=== PATIENT | male | born 1980 ===

== ENCOUNTER 2017-12-01 18:27 | Emergency (ER) | payer OTHER ==
[2017-12-01 18:46] VITALS: BP 107/66; PULSE 84; RESP 16; TEMP 97.9; O2SAT 99
--- NOTE | 2017-12-01 19:05 | ED PDOC ---
History of Present Illness History of Present Illness: Jelani Parra is a 37 year old male with no past medical history who is presenting to the ED for evaluation of nasal congestion, sore throat, and minimal cough onset over a week ago. Patient states that symptoms are worsening and reports tactile fevers. He denies any allergies and states that he has not taken any medications today. PMD: none provided HPI: Influenza Time Seen by Provider: 12/01/17 18:55 Chief Complaint: Cough, Cold, Congestion Chief Complaint (Provider): Cough, Cold, Congestion History Per: Patient Exam Limitations: no limitations Onset/Duration Of Symptoms: Days Symptoms include: fever, sore throat, cough, nasal congestion Past Medical History Reviewed: Historical Data, Nursing Documentation, Vital Signs Vital Signs: Last Vital Signs Temp 97.9 F 12/01/17 18:43 Pulse 84 12/01/17 18:43 Resp 16 12/01/17 18:43 BP 107/66 12/01/17 18:43 Pulse Ox 99 12/01/17 18:43 - Medical History PMH: No Chronic Diseases - Surgical History Surgical History: No Surg Hx - Family History Family History: States: Unknown Family Hx - Immunization History Hx Tetanus Toxoid Vaccination: No Hx Influenza Vaccination: No Hx Pneumococcal Vaccination: No - Home Medications Home Medications: Ambulatory Orders Medication Instructions Recorded Cyclobenzaprine [Cyclobenzaprine 10 mg PO TID PRN #15 tab 07/09/17 HCl] Naproxen [Naprosyn] 500 mg PO BID PRN #15 tablet 07/09/17 Ibuprofen [Motrin] 600 mg PO Q8 PRN #21 tab 12/01/17 Pseudoephedrine [Sudafed Tab] 60 mg PO Q6 PRN #24 tab 12/01/17 - Allergies Allergies/Adverse Reactions: Allergies Allergy/AdvReac Type Severity Reaction Status Date / Time No Known Allergies Allergy Verified 12/01/17 18:43 Review of Systems ROS Statement: Except As Marked, All Systems Reviewed And Found Negative Constitutional: Positive for: Fever ENT: Positive for: Nose Congestion, Throat Pain Respiratory: Positive for: Cough Physical Exam - Reviewed Nursing Documentation Reviewed: Yes Vital Signs Reviewed: Yes - Physical Exam Appears: Positive for: Well, Non-toxic, No Acute Distress Head Exam: Positive for: ATRAUMATIC, NORMAL INSPECTION, NORMOCEPHALIC ENT: Positive for: Nasal Congestion, Pharyngeal Erythema (minimal) Cardiovascular/Chest: Positive for: Regular Rate, Rhythm. Negative for: Murmur Respiratory: Positive for: Normal Breath Sounds, Other (lungs clear to auscultation). Negative for: Respiratory Distress Neurologic/Psych: Positive for: Alert, Oriented. Negative for: Motor/Sensory Deficits Medical Decision Making Medical Decision Making: Time: 18:56 Plan: --Sudafed Tab 60 mg PO --Rapid Strep Scribe Attestation: Documented by Rajwinder Humphrey, acting as a scribe for Joesph Li PA-C. Provider Scribe Attestation: All medical record entries made by the Scribe were at my direction and personally dictated by me. I have reviewed the chart and agree that the record accurately reflects my personal performance of the history, physical exam, medical decision making, and the department course for this patient. I have also personally directed, reviewed, and agree with the discharge instructions and disposition. - ECG O2 Sat by Pulse Oximetry: 99 - Progress ED Course And Treament: RAPID STREP NEG PSEUDOEPHEDRINE 60 MG X 1 DOSE Disposition - Clinical Impression Clinical Impression: Nasal congestion - Patient ED Disposition Is Patient to be Admitted: No - Disposition Referrals: [facility] [Outside] Disposition: Routine/Home Disposition Time: 19:39 Condition: FAIR Prescriptions: Ibuprofen [Motrin] 600 mg PO Q8 PRN #21 tab PRN Reason: Pain, Moderate (4-7) Pseudoephedrine [Sudafed Tab] 60 mg PO Q6 PRN #24 tab PRN Reason: Nasal Congestion Instructions: Pseudoephedrine, Cough, Runny Nose, and the Common Cold (DC) Forms: [facility] ED School/Work Excuse Print Language: [place]
== END 2017-12-01 20:05 | disposition home or self-care (01) ==
LOC: H.ER 18:27
DX: R09.81 Nasal congestion (principal)